=== PATIENT | male | born 1930 | race Caucasian/White ===

== ENCOUNTER 2020-05-14 11:21 | Inpatient (IN) | payer MEDICARE, OTHER, MEDICAID ==
[~2020-05-14] VITALS: Ht 162.6 cm; Wt 95.1 kg
[2020-05-14 11:48] LABS: BASO % 0.1 % (0.0-1.0); EOS # 0.1 10^3/uL (0.0-0.5); EOS % 1.7 % (0.0-3.0); HEMATOCRIT 42.1 % (42.0-52.0); HEMOGLOBIN 13.8 g/dl (13.5-17.5); LYMPH # 0.6 10^3/uL (1.5-5.0); LYMPH % 8.9 % (24.0-44.0); MEAN CORPUSCULAR HEMOGLOBIN 30.6 pg (27.0-33.0); MEAN CORPUSCULAR HGB CONC 32.8 g/dl (32.0-36.5); MEAN CORPUSCULAR VOLUME 93.3 fl (80.0-96.0); MONO # 0.4 10^3/uL (0.0-0.8); MONO % 6.2 % (0.0-5.0); NEUTROPHILS # 5.9 10^3/uL (1.5-8.5); NEUTROPHILS % 82.7 % (36.0-66.0); PLATELET COUNT, AUTOMATED 127 10^3/uL (150-450); RED BLOOD COUNT 4.51 10^6/uL (4.30-6.10); WHITE BLOOD COUNT 7.1 10^3/uL (4.0-10.0)
[2020-05-14] MEDS ORDERED: NITR4TASL SL (12:01)
[2020-05-14] MEDS ORDERED: VENTAER INH (12:01)
[2020-05-14] MEDS ORDERED: TUMS500C PO (12:01)
[2020-05-14] MEDS ORDERED: APAP325T4 PO (12:01)
[2020-05-14] MEDS ORDERED: KLOR10TA76 PO (12:01)
[2020-05-14] MEDS ORDERED: LOPE2TAB12 PO (12:01)
[2020-05-14] MEDS ORDERED: FINA5TAB2 PO (12:01)
[2020-05-14] MEDS ORDERED: ANOR1AER INH (12:01)
--- NOTE | 2020-05-14 12:06 | REP ---
INDICATION: Altered Mental Status. COMPARISON: None. TECHNIQUE: Noncontrast head CT protocol with coronal reconstructions. FINDINGS: The lateral ventricles are symmetric dilated but without midline shift. There is no intra ventricular hemorrhage. Third ventricle of mildly prominent 4th ventricle minimally prominent. All of this is proportionate to the moderately severe diffuse atrophy, age-appropriate. Basal ganglia are symmetric bilaterally. 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 I do not see vascular territory infarct, intracranial hemorrhage, mass or mass effect. No extra-axial fluid collections. Brainstem was unremarkable cerebellum shows mild atrophy. Basal cisterns are intact. There is no posterior fossa hemorrhage or mass. At the skull base there are no mastoid, sphenoid or frontal sinus abnormalities. There is mucosal thickening in the floor of the left much greater than right maxillary antra. Some anterior ethmoid sinuses with mucosal thickening. No fracture of the skull base or calvarium noted. IMPRESSION: Moderately severe diffuse cerebral atrophy with ventriculomegaly in proportion. Chronic small vessel white matter ischemic changes. There is no intra- or extra-axial hemorrhage, acute infarct, mass or mass effect. Skull base and calvarium without fracture or focal lesion. Bilateral maxillary sinus mucosal disease left greater than right with minimal ethmoid sinus mucosal thickening. <Electronically signed by Cristo Barcenas > 05/14/20 [id number]
[2020-05-14] MEDS ORDERED: COLA100C5 PO ×2 (12:13)
[2020-05-14] MEDS ORDERED: MYRB50TA PO (12:13)
[2020-05-14] MEDS ORDERED: FLON1SPR NARES (12:13)
[2020-05-14] MEDS ORDERED: PANT-23 PO (12:13)
[2020-05-14] MEDS ORDERED: LOSA25TA14 PO (12:13)
[2020-05-14] MEDS ORDERED: DOXA1TAB67 PO (12:13)
[2020-05-14] MEDS ORDERED: HM A5TAB4 PO (12:13)
[2020-05-14] MEDS ORDERED: MOBI4TAB PO (12:13)
[2020-05-14] MEDS ORDERED: ACET1TAB55 PO (12:13)
[2020-05-14] MEDS ORDERED: MEMA10TA19 PO (12:13)
[2020-05-14] MEDS ORDERED: FURO20TA2 PO (12:13)
[2020-05-14] MEDS ORDERED: HYDROIN11 TOP (12:13)
[2020-05-14] MEDS ORDERED: REFR0.5D8 OU (12:13)
[2020-05-14] MEDS ORDERED: LORA-243 PO (12:13)
[2020-05-14] MEDS ORDERED: MIRA3350 PO (12:13)
[2020-05-14] MEDS ORDERED: MILKSUS3 PO (12:15)
[2020-05-14 12:18] LABS: ALBUMIN 3.2 GM/DL (3.2-5.2); ALT/SGPT 15 U/L (12-78); BILIRUBIN,DIRECT 0.2 MG/DL (0.0-0.2); BILIRUBIN,TOTAL 0.6 MG/DL (0.2-1.0); BLOOD UREA NITROGEN 18 MG/DL (7-18); CALCIUM LEVEL 8.6 MG/DL (8.8-10.2); CARBON DIOXIDE LEVEL 30 MEQ/L (21-32); CHLORIDE LEVEL 105 MEQ/L (98-107); CK-MB VALUE MASS 3.9 NG/ML (<3.6); CPK CREATINE PHOSPHOKINASE 172 U/L (39-308); CREATININE FOR GFR 0.97 MG/DL (0.70-1.30); GLOMERULAR FILTRATION RATE > 60.0 (>35); GLUCOSE, FASTING 85 MG/DL (70-100); MB/CK RELATIVE INDEX 2.27 (< OR =4); POTASSIUM SERUM 4.1 MEQ/L (3.5-5.1); SODIUM LEVEL 140 MEQ/L (136-145); TOTAL PROTEIN 6.1 GM/DL (6.4-8.2); TROPONIN I < 0.02 NG/ML (< 0.10)
--- NOTE | 2020-05-14 12:37 | REP ---
INDICATION: Altered Mental Status. COMPARISON: None TECHNIQUE: AP portable FINDINGS: Some elevation of the right diaphragm is noted. Heart is left ventricular configuration. There is some venous hypertension with vascular redistribution. Some underlying fibrosis makes early interstitial edema difficult to exclude. Retrocardiac density may reflect some atelectasis, fibrosis or early infiltrate. No gross effusion. Tortuous calcified aorta without gross aneurysm. Airway intact. Degenerative changes in the spine and shoulders. IMPRESSION: 1. Left ventricular configuration of the heart with some vascular redistribution. Underlying fibrosis makes early interstitial edema difficult to exclude. 2. Some retrocardiac density at the left base may reflect subsegmental atelectasis, fibrosis or infiltrate. No gross effusion but AP lordotic projection may certainly obscure small posterior effusions. <Electronically signed by Cristo Barcenas > 05/14/20 [id number]
[2020-05-14] MEDS ORDERED: PIPERACILLIN/TAZOBACTAM SOD 3.375 GM in D5W MINI-BAG PLUS 50 ML IV ONE (13:15)
[2020-05-14] MEDS ORDERED: valACYclovir HCL 500 MG TAB PO ONE (13:45)
[2020-05-14] MEDS ORDERED: NITROGLYCERIN 0.4 MG SUBL TABLET SL PRN (16:30)
[2020-05-14] MEDS ORDERED: MIRALAX *UNIT DOSE* 17GM PACKET PO PRN (16:30)
[2020-05-14] MEDS ORDERED: MOM 30ML SUSPENSION UDC PO PRN (16:30)
[2020-05-14 17:30] VITALS: BP 138/72
--- NOTE | 2020-05-14 17:41 | SMCUROLCON ---
Urology Consultation General Date of Consultation 05/14/20 Reason For Consultation This patient is seen for Cellulitis Of Groin,Syncope,Urethral Irritation. History of Present Illness The patient is a 89-year-old male with no past medical history for urologic or voiding problems. He presented to the emergency room after losing consciousness at his [facility] emergency room he was noted to have a swollen inflamed penis and a urology consult was called. The patient is not a good historian but denies any urinary problems. Past Medical History Medical History Osteoarthritis Mentally challenged Anxiety Depression Urinary incontinence GERD IBS Respiratory disorder Hypertension Atrial fibrillation Dementia Alzheimer's Surgical Hstory Unknown Social History Social History Patient in a penitentiary * Smoker: non-smoker Alcohol: Denies Drugs: denies Medications Current Medications Current Medications Medications (Trade) Dose Ordered Sig/Jena Route PRN Reason Start Time Stop Time Status Last Admin Dose Admin Artificial Tears (Akwa Tears) 2 drop BID OU 05/14/20 21:00 Clotrimazole (Lotrimin) 1 dose BID TOP 05/14/20 21:00 Docusate Sodium (Colace) 100 mg DAILY PO 05/15/20 09:00 Doxazosin Mesylate (Cardura) 4 mg DAILY PO 05/15/20 09:00 Enoxaparin Sodium (Lovenox) 40 mg DAILY SC 05/15/20 09:00 Finasteride (Proscar) 5 mg DAILY PO 05/15/20 09:00 Fluticasone Propionate (Flonase 0.05% Nasal [place]) 1 SPRAY IN EACH NOSTRIL BID NARES 05/14/20 21:00 Formoterol Fumarate (Perforomist) 20 mcg RBID INH 05/14/20 20:00 Home Med (Med Rec Complete!) ASDIRECTED XX 05/14/20 12:15 05/14/20 12:17 DC Lactobacillus Acidophilus (Bacid) 2 ea BID PO 05/14/20 21:00 Loratadine (Claritin) 10 mg QHS PO 05/14/20 21:00 Losartan Potassium (Cozaar) 25 mg QHS PO 05/14/20 21:00 Magnesium Hydroxide (Milk Of Magnesia) 30 ml DAILY PRN PO CONSTIPATION 05/14/20 16:30 Memantine (Namenda) 10 mg BID PO 05/14/20 21:00 Nitroglycerin (Nitrostat (1/ 150)) 0.4 mg Q5MP PRN SL CHEST PAIN 05/14/20 16:30 Pantoprazole Sodium (Protonix) 40 mg DAILY PO 05/15/20 09:00 Piperacillin Sod/ Tazobactam Sod 3.375 gm/Dextrose 50 ml @ 50 mls/hr Q6H IV 05/14/20 20:00 Polyethylene Glycol (Miralax) 1 pkt DAILY PRN PO CONSTIPATION 05/14/20 16:30 Tiotropium [place] (Spiriva Handihaler) 1 inhalation DAILY@08 INH 05/15/20 08:00 Valacyclovir HCl (Valtrex) 1,000 mg BID PO 05/14/20 21:00 Allergies Allergies: Coded Allergies: No Known Allergies (Unverified , 05/14/20) Review of Systems General: Reports: Normal Appetite; Denies: Fatigue, Malaise Constitutional: Denies: Fever, Chills, Sweats, Weakness, Malaise Eyes: Denies: Pain, Vision change ENT: Denies: Head Aches, Sore Throat, Epistaxis Skin: Denies: Rash, Lesions, Breakdown, Nail Changes Pulmonary: Denies: Dyspnea, Cough Cardiovascular: Denies Chest Pain, Denies Palpitations Gastrointestinal: Reports: Other Symptoms (IBS); Denies: Nausea, Vomiting, Abdominal Pain Genitourinary: Reports: Incontinence Psych: Reports: Other Psych (dementia, Alzheimer's) Physical Examination General Exam: Alert, No Acute Distress EYE EXAM: PERRLA, Conjunctiva & lids normal, EOMI; No: Sclera icteric ENT EXAM: Atraumatic, Mucous membr. moist/pink, Pharynx Normal Neck Exam: Supple; No: JVD, thyromegaly Chest Exam: Clear to auscultation, Normal air movement Heart Exam: Rate Normal, Regular Rhythm, Normal S1, Normal S2; No: Murmurs, Rubs Abdomen Exam: Normal Bowel Sounds, Soft; No: Tenderness, Hepatospenomegaly Male Exam Penis is uncircumcised. There is a large consolidated vesicle at the base with other scattered satellite vessels consistent with herpes simplex. Scrotum and inguinal areas are inflamed which is consistent with fungal infections. Scrotum is also inflamed. Testicles are normal. Vital Signs/I&O Vital Signs Date Time Temp Pulse Resp B/P (MAP) Pulse Ox O2 Delivery O2 Flow Rate FiO2 05/14/20 17:00 76 18 160/70 (100) 96 Room Air 05/14/20 13:15 97.5 Laboratory Data 24H Labs Laboratory Tests 2 05/14/20 11:28: Immature Granulocyte % (Auto) 0.4, Neutrophils (%) (Auto) 82.7H, Lymphocytes (%) (Auto) 8.9L, Monocytes (%) (Auto) 6.2H, Eosinophils (%) (Auto) 1.7, Basophils (%) (Auto) 0.1, Neutrophils # (Auto) 5.9, Lymphocytes # (Auto) 0.6L, Monocytes # (Auto) 0.4, Eosinophils # (Auto) 0.1, Basophils # (Auto) 0.0, Nucleated Red Blood Cells % (auto) 0.0, Anion Gap 5L, Glomerular Filtration Rate > 60.0, Lactic Acid Level 1.1, Calcium Level 8.6L, Total Bilirubin 0.6, Direct Bilirubin 0.2, Aspartate Amino Transf (AST/SGOT) 20, Alanine Aminotransferase (ALT/SGPT) 15, Alkaline Phosphatase 62, Total Creatine Kinase 172, Creatine Kinase MB 3.9H, Creatine Kinase MB Relative Index 2.27, Troponin I < 0.02, Total Protein 6.1L, Albumin 3.2, Albumin/Globulin Ratio 1.1, Thyroid Stimulating Hormone (TSH) 1.310 05/14/20 11:32: POC Glucose (Misc Panel) 87, POC Sodium (Misc Panel) 139, POC Potassium (Misc Panel) 4.1, POC Chloride (Misc Panel) 101, POC Total CO2 (Misc Panel) 29.0H, POC Blood Urea Nitrogen (Misc Panel 19, POC Ionized Calcium (Misc Panel) 4.6, POC Creatinine (Misc Panel) 1.0, POC Hematocrit (Misc Panel) 41.0 05/14/20 11:35: POC Troponin I (Misc) 0.00 CBC/BMP Laboratory Tests 05/14/20 11:28 Microbiology Microbiology 05/14/20 Herpes Simplex Virus I (PCR), Received Pending 05/14/20 Herpes Simplex Virus II (PCR), Received Pending 05/14/20 Blood Culture, Received Pending Assessment Fungal rash of groin Herpes simplex of penile shaft Plan Recommend valacyclovir and some antibiotics. Patient also would benefit from an antifungal to the groin areas. I would recommend wrapping the penis so the patient does not spread the virus. Elevate penis for better drainage Time Spent on Consult: Time Spent / Consult (Minutes): 60 CINDY GARRETT MD May 14, 2020 17:28
--- NOTE | 2020-05-14 18:43 | HPEPDOC ---
General Date of Admission May 14, 2020 Date of Service: May 14, 2020 Chief Complaint The patient is a 89-year-old male admitted with a reason for visit of Unresponsive. Source: Patient, Family Exam Limitations: Dementia, Hard of hearing History of Present Illness Mr. Bennett is an 89 year old male with Alzheimer's dementia and COPD here for syncope and found to have groin and penis inflammation. Patient is a poor historian and most of the history was obtained from ED provider and patient's saleem care proxy. While at [facility], he was eating breakfast and he had passed out briefly. When EMS arrived, he was found to have an SBP of 70. He was given fluid which his blood pressure quickly responded. He was then taken to the ED. While in the ED, physical exam demonstrated an enlarged, edematous penis with bullae. ED discussed case with urology who recommended antibiotic and antiviral. He was given Zosyn and Valacyclovir. While in the ED, he did not appear to be in distress. He did not answer my question appropriately and mumbled. He did admit to dysuria and pain in the groin area. I spoke with the health care proxy ([phone]). Patient at times can be confused, but once he warms up, he can continue a conversation. Health care proxy also confirms full code status. Home Medications Scheduled Acetaminophen (Acetaminophen) 325 Mg Tablet, 650 MG PO TID, (Reported) Carboxymethylcellulose Sodium (Refresh Tears) 15 Ml Drops, 1 DROP OU BID, (Reported) Docusate Sodium (Colace) 100 Mg Capsule, 100 MG PO DAILY, (Reported) Doxazosin Mesylate (Doxazosin) 4 Mg Tablet, 4 MG PO DAILY, (Reported) Finasteride (Finasteride) 5 Mg Tablet, 5 MG PO DAILY, (Reported) Fluticasone Propionate (Flonase Allergy Relief) 9.9 Ml [place].susp, 1 SPRAY NARES BID, (Reported) Furosemide (Furosemide) 20 Mg Tablet, 10 MG PO DAILY, (Reported) Lactobacillus Acidophilus (Acidophilus) 1 Each Tablet, 2 TAB PO BID, (Reported) Loratadine (Loratadine) 10 Mg Tablet, 10 MG PO QHS, (Reported) Losartan Potassium (Losartan Potassium) 25 Mg Tablet, 25 MG PO QHS, (Reported) Meloxicam (Mobic) 7.5 Mg Tablet, 7.5 MG PO DAILY, (Reported) Memantine HCl (Memantine HCl) 10 Mg Tablet, 10 MG PO BID, (Reported) Mirabegron (Myrbetriq) 50 Mg Tab.er.24h, 50 MG PO DAILY, (Reported) Pantoprazole Sodium (Pantoprazole Sodium) 40 Mg Tablet.dr, 40 MG PO DAILY, (Reported) Potassium Chloride (Klor-Con M10) 10 Meq Tab.er.prt, 10 MEQ PO DAILY, (Reported) Umeclidinium Brm/Vilanterol Tr (Anoro Ellipta 62.5-25 Mcg INH) 1 Each Blst.w.dev, 1 PUFF INH DAILY, (Reported) Scheduled PRN Acetaminophen (Acetaminophen) 325 Mg Tablet, 325 MG PO Q4H PRN for PAIN / FEVER, (Reported) Albuterol Sulfate (Ventolin Hfa) 18 Gm Hfa.aer.ad, 2 PUFFS INH Q4H PRN for SHORTNESS OF BREATH, (Reported) Calcium Carbonate (Tums) 200 Mg Tab.chew, 500 MG PO Q6H PRN for HEARTBURN, (R eported) Docusate Sodium (Colace) 100 Mg Capsule, 100 MG PO BID PRN for CONSTIPATION, (Reported) Loperamide HCl (Imodium A-D) 2 Mg Tablet, 2 MG PO QID PRN for DIARRHEA, (Reported) Magnesium Hydroxide (Milk of Magnesia) 400 Mg/5 Ml Oral.susp, 30 ML PO DAILY PRN for CONSTIPATION, (Reported) Nitroglycerin (Nitrostat) 0.4 Mg Tab.subl, 0.4 MG SL NITRO PRN for CHEST PAIN, (Reported) Ointment Base No.104 (Hydrophilic Ointment Base) 500 Gm Oint...g., 1 DOSE TOP BID PRN for RASH, (Reported) APPLY TO CHEST AND ABDOMEN Polyethylene Glycol 3350 (Miralax) 119 Gm Powder, 17 GM PO DAILY PRN for CONSTIPATION, (Reported) Allergies Coded Allergies: No Known Allergies (Unverified , 05/14/20) Past Medical History Medical History 1. Alzheimer's dementia 2. Mixed irritable bowel syndrome 3. Hypertension 4. BPH 5. Anxiety/depression 6. SHAUNA 7. COPD 8. GERD Surgical History Unknown. Patient is a poor historian. Did not see surgical history in paperwork Family History Unknown as patient is a poor historian Social History * Smoker: other (unknown as patient is a poor historian) Alcohol: other (unknown as patient is a poor historian) Drugs: other (unknown as patient is a poor historian) A-FIB/CHADSVASC A-FIB History Current/History of A-Fib/PAF?: No Review of Systems Constitutional: Denies: Chills, Fever Eyes: Denies: Vision change ENT: Denies: Sore Throat Skin: Reports: Rash Pulmonary: Reports: Dyspnea Cardiovascular: Reports: Chest Pain (he says he has it on and off, described as a sharp pain) Gastrointestinal: Denies: Abdominal Pain Genitourinary: Reports: Dysuria Musculoskeletal: Reports: Back Pain Neurological: Reports: Numbness (and feet bilaterally) Physical Examination General Exam: Negative: Cooperative, No Acute Distress Eye Exam: Positive: EOMI; Negative: Sclera icteric ENT Exam: Positive: Atraumatic Neck Exam: Negative: thyromegaly Chest Exam: Positive: Clear to auscultation, Diminished Heart Exam: Positive: Rate Normal, Regular Rhythm Abdomen Exam: Positive: Normal bowel sounds, Soft; Negative: Tenderness Extremity Exam: Negative: Cyanosis, Edema Neuro Exam: Positive: Other (had difficulty following commands for neurologic exam) Psych Exam: Positive: Mood NL Vital Signs Vital Signs Date Time Temp Pulse Resp B/P (MAP) Pulse Ox O2 Delivery O2 Flow Rate FiO2 05/14/20 16:45 75 156/76 (102) 94 Room Air 05/14/20 15:46 20 05/14/20 13:15 97.5 Laboratory Data Labs 24H Laboratory Tests 2 05/14/20 11:28: Immature Granulocyte % (Auto) 0.4, Neutrophils (%) (Auto) 82.7H, Lymphocytes (%) (Auto) 8.9L, Monocytes (%) (Auto) 6.2H, Eosinophils (%) (Auto) 1.7, Basophils (%) (Auto) 0.1, Neutrophils # (Auto) 5.9, Lymphocytes # (Auto) 0.6L, Monocytes # (Auto) 0.4, Eosinophils # (Auto) 0.1, Basophils # (Auto) 0.0, Nucleated Red Blood Cells % (auto) 0.0, Anion Gap 5L, Glomerular Filtration Rate > 60.0, Lactic Acid Level 1.1, Calcium Level 8.6L, Total Bilirubin 0.6, Direct Bilirubin 0.2, Aspartate Amino Transf (AST/SGOT) 20, Alanine Aminotransferase (ALT/SGPT) 15, Alkaline Phosphatase 62, Total Creatine Kinase 172, Creatine Kinase MB 3.9H, Creatine Kinase MB Relative Index 2.27, Troponin I < 0.02, Total Protein 6.1L, Albumin 3.2, Albumin/Globulin Ratio 1.1, Thyroid Stimulating Hormone (TSH) 1.310 05/14/20 11:32: POC Glucose (Misc Panel) 87, POC Sodium (Misc Panel) 139, POC Potassium (Misc Panel) 4.1, POC Chloride (Misc Panel) 101, POC Total CO2 (Misc Panel) 29.0H, POC Blood Urea Nitrogen (Misc Panel 19, POC Ionized Calcium (Misc Panel) 4.6, POC Creatinine (Misc Panel) 1.0, POC Hematocrit (Misc Panel) 41.0 05/14/20 11:35: POC Troponin I (Misc) 0.00 CBC/BMP Laboratory Tests 05/14/20 11:28 Microbiology Microbiology 05/14/20 Herpes Simplex Virus I (PCR), Received Pending 05/14/20 Herpes Simplex Virus II (PCR), Received Pending 05/14/20 Blood Culture, Received Pending Assessment/Plan Mr. Bennett is an 89 year old male with Alzheimer's dementia and COPD here for syncope and found to have groin and penis inflammation. Syncope work up will include echocardiogram and tele monitoring. Urology consulted for groin/penis inflammation. Urology is suspecting HSV infection. Recommends elevation of penis to help with the swelling. Recommends wrapping the penis to prevent transmission of HSV from penis to hand to eye. Recommends antiviral and antifungal. Plan / VTE VTE Prophylaxis Ordered?: Yes Plan Plan 1. Syncope -Passed out at [facility] -May have been secondary to hypotension -Responded to fluid -Echocardiogram and tele monitor 2. HSV infection of penis -Urology following, recommendations appreciated -HSV PCR pending -Valacyclovir 3. Tinea cruris -Groin area -Clotrimazole topical -May be cellulitis, added on Zosyn 4. BPH -continue Doxazosin and finasteride 5. COPD -Substituted LAMA/LABA combo with tiotropium and formoterol 6. Hypertension -Losartan 7. Alzheimer's dementia -Memantine 8. GERD -Pantoprazole 9. DVT ppx -SCD and TEDs BREONNA STEIN DO May 14, 2020 17:10
[2020-05-14] MEDS: FORMOTEROL FUMARATE 20 MCG/2 ML INHALATION SOLUTION (PERFOROMIST) INH SCH (20:09)
[2020-05-14 20:17] LABS: CHLAMYDIA DNA AMPLIFICATION NEGATIVE (NEGATIVE); GC DNA AMPLIFICATION NEGATIVE (NEGATIVE)
[2020-05-14] MEDS: PIPERACILLIN/TAZOBACTAM SOD 3.375 GM in D5W MINI-BAG PLUS 50 ML IV SCH (20:17)
[2020-05-14] MEDS: MEMANTINE 5MG TABLET (NAMENDA) PO SCH (20:18)
[2020-05-14] MEDS: LACTOBACILLUS ACIDOPHILUS CAP (BACID) PO SCH (20:18)
[2020-05-14] MEDS: LORATADINE 10 MG TAB PO SCH (20:19)
[2020-05-14] MEDS: valACYclovir HCL 500 MG TAB PO SCH (20:19)
[2020-05-14] MEDS: LOSARTAN 25 MG TAB PO SCH (20:22)
[2020-05-14] MEDS: POLYVINYL ALCOHOL OPHTH SOLN 15 ML(LIQUITEARS) OU SCH (20:22)
[2020-05-14] MEDS: FLUTICASONE PROP 0.05% NASAL SPRAY 16 GM (FLONASE) NARES SCH (20:22)
[2020-05-14] MEDS: CLOTRIMAZOLE 1% TOPICAL CREAM 30GM TOP SCH (20:51)
[2020-05-14 22:00] VITALS: BP 144/86
[2020-05-15] MEDS: PIPERACILLIN/TAZOBACTAM SOD 3.375 GM in D5W MINI-BAG PLUS 50 ML IV SCH ×4 (02:16→21:28)
[2020-05-15 04:00] VITALS: BP 108/85
[2020-05-15 06:46] LABS: HEMATOCRIT 42.1 % (42.0-52.0); HEMOGLOBIN 13.9 g/dl (13.5-17.5); MEAN CORPUSCULAR HEMOGLOBIN 30.3 pg (27.0-33.0); MEAN CORPUSCULAR VOLUME 91.7 fl (80.0-96.0); PLATELET COUNT, AUTOMATED 129 10^3/uL (150-450); RED BLOOD COUNT 4.59 10^6/uL (4.30-6.10)
[2020-05-15 07:06] LABS: BLOOD UREA NITROGEN 16 MG/DL (7-18); CALCIUM LEVEL 8.4 MG/DL (8.8-10.2); CARBON DIOXIDE LEVEL 27 MEQ/L (21-32); CHLORIDE LEVEL 108 MEQ/L (98-107); CREATININE FOR GFR 0.87 MG/DL (0.70-1.30); GLOMERULAR FILTRATION RATE > 60.0 (>35); GLUCOSE, FASTING 86 MG/DL (70-100); POTASSIUM SERUM 3.8 MEQ/L (3.5-5.1); SODIUM LEVEL 141 MEQ/L (136-145)
[2020-05-15] MEDS: FORMOTEROL FUMARATE 20 MCG/2 ML INHALATION SOLUTION (PERFOROMIST) INH SCH ×2 (07:09→20:08)
[2020-05-15] MEDS: TIOTROPIUM INHALER/CAPSULE (SPIRIVA) INH SCH (07:09)
[2020-05-15] MEDS: LACTOBACILLUS ACIDOPHILUS CAP (BACID) PO SCH ×2 (08:54→21:29)
[2020-05-15] MEDS: FINASTERIDE 5 MG TAB PO SCH (08:54)
[2020-05-15] MEDS: ENOXAPARIN 40MG/0.4ML SYRINGE (J1650 PER 10MG) SC SCH (08:54)
[2020-05-15] MEDS: CLOTRIMAZOLE 1% TOPICAL CREAM 30GM TOP SCH ×2 (08:54→21:29)
[2020-05-15] MEDS: MEMANTINE 5MG TABLET (NAMENDA) PO SCH ×2 (08:54→21:35)
[2020-05-15] MEDS: valACYclovir HCL 500 MG TAB PO SCH ×2 (08:55→21:35)
[2020-05-15] MEDS: PANTOPRAZOLE 40MG TAB (PROTONIX) PO SCH (08:55)
[2020-05-15] MEDS: DOCUSATE SODIUM 100 MG CAP PO SCH (08:55)
[2020-05-15] MEDS: DOXAZOSIN MESYLATE 4 MG TAB PO SCH (14:53)
[2020-05-15] MEDS: FLUTICASONE PROP 0.05% NASAL SPRAY 16 GM (FLONASE) NARES SCH ×2 (14:53→21:29)
[2020-05-15] MEDS: POLYVINYL ALCOHOL OPHTH SOLN 15 ML(LIQUITEARS) OU SCH ×2 (14:53→21:29)
--- NOTE | 2020-05-15 15:51 | IPNPDOC ---
Subjective Date Seen The patient was seen on 05/15/20. Subjective Chief Complaint/HPI Mr. Bennett is an 89 year old male with Alzheimer's dementia and COPD here for syncope and found to have groin and penis inflammation. Overnight, he was agitated and required a sitter. Otherwise, reports some pain in his groin area. Denies fevers, dyspnea, or chest pain. Objective Physical Examination General Exam: Negative: Cooperative Eye Exam: Positive: EOMI; Negative: Sclera icteric ENT Exam: Positive: Atraumatic Neck Exam: Negative: thyromegaly Chest Exam: Positive: Clear to auscultation, Diminished Heart Exam: Positive: Rate Normal, Regular Rhythm Abdomen Exam: Positive: Normal bowel sounds, Soft; Negative: Tenderness Extremity Exam: Negative: Cyanosis, Edema Neuro Exam: Positive: Other (had difficulty following commands for neurologic exam) Psych Exam: Positive: Mood NL Assessment /Plan Assessment Mr. Bennett is an 89 year old male with Alzheimer's dementia and COPD here for syncope and found to have groin and penis inflammation. Syncope work up will include echocardiogram and tele monitoring. Urology consulted for groin/penis inflammation. Urology is suspecting HSV infection. Recommends elevation of penis to help with the swelling. Recommends wrapping the penis to prevent transmission of HSV from penis to hand to eye. Recommends antiviral and antifungal. Pending HSV PCR results Plan/VTE VTE Prophylaxis Ordered?: Yes Plan 1. Syncope -Passed out at [facility] -May have been secondary to hypotension -Responded to fluid -Echocardiogram results pending -Tele monitor 2. HSV infection of penis -Urology following, recommendations appreciated -HSV PCR pending -Valacyclovir 3. Tinea cruris -Groin area -Clotrimazole topical -May be cellulitis, added on Zosyn 4. BPH -continue Doxazosin and finasteride 5. COPD -Substituted LAMA/LABA combo with tiotropium and formoterol 6. Hypertension -Losartan 7. Alzheimer's dementia -Memantine 8. GERD -Pantoprazole 9. DVT ppx -SCD and TEDs Dispo: Pending HSV PCR results VS, I&O, 24H, Fishbone Vital Signs/I&O Vital Signs Date Time Temp Pulse Resp B/P (MAP) Pulse Ox O2 Delivery O2 Flow Rate FiO2 05/15/20 14:53 120/90 05/15/20 14:00 98.7 77 19 96 05/14/20 17:30 Room Air I&O- Last 24 Hours up to 6 AM 05/15/20 06:00 Intake Total 900 ml Output Total 1125 ml Balance -225 ml Laboratory Data 24H LABS Laboratory Tests 2 05/14/20 17:38: Urine Color YELLOW, Urine Appearance CLEAR, Urine pH 6.0, Urine Specific [place] 1.013, Urine Protein NEGATIVE, Urine Glucose (UA) NEGATIVE, Urine Ketones NEGATIVE, Urine Blood NEGATIVE, Urine Nitrite NEGATIVE, Urine Bilirubin NEGATIVE, Urine Urobilinogen 0.2, Urine Leukocyte Esterase NEGATIVE, Urine WBC (Auto) 0, Urine RBC (Auto) 0, Urine Hyaline Casts (Auto) 0, Urine Bacteria (Auto) NEGATIVE, Urine Squamous Epithelial Cells 0, Urine Mucus (Auto) SMALL, Urine Sperm (Auto) , Chlamydia trachomatis DNA (ANTHONY) NEGATIVE, Neisseria gonorrhoeae DNA (ANTHONY) NEGATIVE, Trichomonas vaginalis (PCR) NOT DETECTED 05/14/20 19:24: Troponin I < 0.02 05/15/20 06:13: Nucleated Red Blood Cells % (auto) 0.0, Anion Gap 6L, Glomerular Filtration Rate > 60.0, Calcium Level 8.4L 05/15/20 13:55: Lab Scanned Report Miscellaneous Lab CBC/BMP Laboratory Tests 05/15/20 06:13 Microbiology Microbiology 05/14/20 Blood Culture, Received Pending 05/14/20 Herpes Simplex Virus I (PCR), Received Pending 05/14/20 Herpes Simplex Virus II (PCR), Received Pending 05/14/20 Blood Culture - Preliminary, Resulted No growth after 24 hours . All specim... BREONNA STEIN DO May 15, 2020 15:51
[2020-05-15] MEDS ORDERED: ACETAMINOPHEN TAB 650MG DOSE (2X325MG) PO PRN (20:30)
[2020-05-15] MEDS: LOSARTAN 25 MG TAB PO SCH (21:35)
[2020-05-15] MEDS: LORATADINE 10 MG TAB PO SCH (21:35)
[2020-05-15 22:00] VITALS: BP 180/89
[2020-05-15] MEDS ORDERED: HALOPERIDOL 5MG/ML VIAL (J1630 PER 1) IM STA (22:17)
[2020-05-15] MEDS ORDERED: hydrOXYzine 25 MG TAB PO ONE (22:30)
[2020-05-16] MEDS: PIPERACILLIN/TAZOBACTAM SOD 3.375 GM in D5W MINI-BAG PLUS 50 ML IV SCH ×4 (02:12→20:33)
[2020-05-16 06:00] VITALS: BP 140/71
[2020-05-16 06:26] LABS: HEMATOCRIT 42.5 % (42.0-52.0); HEMOGLOBIN 14.3 g/dl (13.5-17.5); MEAN CORPUSCULAR HEMOGLOBIN 30.8 pg (27.0-33.0); MEAN CORPUSCULAR HGB CONC 33.6 g/dl (32.0-36.5); MEAN CORPUSCULAR VOLUME 91.4 fl (80.0-96.0); PLATELET COUNT, AUTOMATED 130 10^3/uL (150-450); RED BLOOD COUNT 4.65 10^6/uL (4.30-6.10); WHITE BLOOD COUNT 5.5 10^3/uL (4.0-10.0)
[2020-05-16 06:50] LABS: BLOOD UREA NITROGEN 15 MG/DL (7-18); CARBON DIOXIDE LEVEL 28 MEQ/L (21-32); CHLORIDE LEVEL 107 MEQ/L (98-107); CREATININE FOR GFR 0.81 MG/DL (0.70-1.30); GLOMERULAR FILTRATION RATE > 60.0 (>35); GLUCOSE, FASTING 89 MG/DL (70-100); POTASSIUM SERUM 3.6 MEQ/L (3.5-5.1); SODIUM LEVEL 140 MEQ/L (136-145)
[2020-05-16 06:51] LABS: CALCIUM LEVEL 8.5 MG/DL (8.8-10.2)
[2020-05-16] MEDS: FORMOTEROL FUMARATE 20 MCG/2 ML INHALATION SOLUTION (PERFOROMIST) INH SCH ×2 (07:13→19:19)
[2020-05-16] MEDS: TIOTROPIUM INHALER/CAPSULE (SPIRIVA) INH SCH (07:14)
[2020-05-16] MEDS: ENOXAPARIN 40MG/0.4ML SYRINGE (J1650 PER 10MG) SC SCH (09:07)
[2020-05-16] MEDS: LACTOBACILLUS ACIDOPHILUS CAP (BACID) PO SCH ×2 (09:07→20:35)
[2020-05-16] MEDS: MEMANTINE 5MG TABLET (NAMENDA) PO SCH ×2 (09:07→20:35)
[2020-05-16] MEDS: DOCUSATE SODIUM 100 MG CAP PO SCH (09:07)
[2020-05-16] MEDS: valACYclovir HCL 500 MG TAB PO SCH ×2 (09:07→20:34)
[2020-05-16] MEDS: PANTOPRAZOLE 40MG TAB (PROTONIX) PO SCH (09:07)
[2020-05-16] MEDS: CLOTRIMAZOLE 1% TOPICAL CREAM 30GM TOP SCH ×2 (09:13→20:36)
[2020-05-16] MEDS: DOXAZOSIN MESYLATE 4 MG TAB PO SCH (09:13)
[2020-05-16] MEDS: POLYVINYL ALCOHOL OPHTH SOLN 15 ML(LIQUITEARS) OU SCH ×2 (09:13→20:36)
[2020-05-16] MEDS: FINASTERIDE 5 MG TAB PO SCH (09:13)
[2020-05-16] MEDS: FLUTICASONE PROP 0.05% NASAL SPRAY 16 GM (FLONASE) NARES SCH ×2 (09:13→20:35)
--- NOTE | 2020-05-16 10:34 | ECHO ---
DATE OF PROCEDURE: 05/14/2020 Age: 89 Gender: Male REFERRING PROVIDER: Tramaine Bucio DO PATIENT LOCATION: Room 4219. REASON FOR STUDY: Syncope. 2D MEASUREMENTS: IVS 1.2 cm LV 3.9 cm LVPW 1.3 cm LA 2.9 cm Aorta 3.8 cm DOPPLER MEASUREMENT Peak velocity across the aortic valve 1.8 m/s Peak velocity across the LVOT 0.88 m/s Mitral E 0.74 Mitral A 0.92 with a ratio of 0.8 Maximum tricuspid valve velocity 2.7 m/s 2D COMMENTS: 1. Normal left ventricular size with mildly increased left ventricular wall thickness. Left ventricular systolic function is normal, estimated at 60% to 65%. 2. Normal left atrium. Normal right atrium and right ventricle. 3. The atrial septum appeared to be normal without evidence of defect or shunt. 4. Mildly dilated aortic root at 3.8 cm. 5. No pericardial effusion seen. 6. Mildly calcified aortic valve with normal leaflet excursion. 7. Mildly calcified mitral annulus with normal anterior mitral valve leaflet motion. Normal tricuspid valve. The pulmonic valve and proximal pulmonary artery branches were not well visualized. 8. The inferior vena cava was not visualized. Doppler detects trace aortic regurgitation, mild tricuspid regurgitation. The calculated pulmonary artery systolic pressure varies between 30 to 40 mmHg. Abnormal relaxation pattern was noted across the mitral valve leaflets, as well as the mitral valve annulus consistent with features of grade 1 left ventricular diastolic dysfunction. IMPRESSION: 1. Normal global left ventricular systolic function with mild concentric left ventricular hypertrophy. There are some features of grade 1 left ventricular diastolic dysfunction manifested by abnormal relaxation. 2. Aortic valve sclerosis with trace aortic regurgitation and trivial aortic stenosis. 3. Isolated mitral annulus calcification. 4. Mild tricuspid regurgitation with mild pulmonary hypertension. 5. A mildly dilated aortic root was noted, 3.8 cm. MTDD
[2020-05-16] MEDS: NYSTATIN 100,000 UNITS/GM TOPICAL PWD 15 GM TOP SCH ×2 (14:57→20:35)
--- NOTE | 2020-05-16 16:23 | IPNPDOC ---
Subjective Date Seen The patient was seen on 05/16/20. Subjective Chief Complaint/HPI Mr. Bennett is an 89 year old male with Alzheimer's dementia and COPD here for syncope and found to have groin and penis inflammation. He is a poor historian, but denies any fevers or abdominal pain. He reports pain in the groin but does not know if it's better or worse than before. Objective Physical Examination General Exam: Negative: Cooperative Eye Exam: Positive: EOMI; Negative: Sclera icteric ENT Exam: Positive: Atraumatic Neck Exam: Negative: thyromegaly Chest Exam: Positive: Clear to auscultation, Diminished Heart Exam: Positive: Rate Normal, Regular Rhythm Abdomen Exam: Positive: Normal bowel sounds, Soft; Negative: Tenderness Extremity Exam: Negative: Cyanosis, Edema Neuro Exam: Positive: Other (had difficulty following commands for neurologic exam) Psych Exam: Positive: Mood NL Assessment /Plan Assessment Mr. Bennett is an 89 year old male with Alzheimer's dementia and COPD here for syncope and found to have groin and penis inflammation. Syncope work up will include echocardiogram and tele monitoring. Urology consulted for groin/penis inflammation. Urology is suspecting HSV infection. Recommends elevation of penis to help with the swelling. Recommends wrapping the penis to prevent transmission of HSV from penis to hand to eye. Recommends antiviral and antifungal. Pending HSV PCR results. Plan/VTE VTE Prophylaxis Ordered?: Yes Plan 1. Syncope -Passed out at [facility] -May have been secondary to hypotension -Responded to fluid -Echocardiogram demonstrates normal global left ventricular systolic function with grade 1 diastolic dysfunction -Tele monitor 2. HSV infection of penis -Urology following, recommendations appreciated -HSV PCR pending -Valacyclovir 3. Tinea cruris -Groin area -Clotrimazole topical -Added nystatin powder today -May be cellulitis, added on Zosyn 4. BPH -continue Doxazosin and finasteride 5. COPD -Substituted LAMA/LABA combo with tiotropium and formoterol 6. Hypertension -Losartan 7. Alzheimer's dementia -Memantine 8. Delirium/hospital psychosis/"sundowning" -Will start Seroquel tonight 9. GERD -Pantoprazole 10. DVT ppx -SCD and TEDs Dispo: Pending HSV PCR results VS, I&O, 24H, Fishbone Vital Signs/I&O Vital Signs Date Time Temp Pulse Resp B/P (MAP) Pulse Ox O2 Delivery O2 Flow Rate FiO2 05/16/20 14:00 98.0 73 20 93 Room Air 05/16/20 09:13 165/108 I&O- Last 24 Hours up to 6 AM 05/16/20 06:00 Intake Total 700 ml Output Total 0 ml Balance 700 ml Laboratory Data 24H LABS Laboratory Tests 2 05/16/20 06:04: Nucleated Red Blood Cells % (auto) 0.0, Anion Gap 5L, Glomerular Filtration Rate > 60.0, Calcium Level 8.5L CBC/BMP Laboratory Tests 05/16/20 06:04 Microbiology Microbiology 05/14/20 Blood Culture - Preliminary, Resulted No growth after 24 hours . All specim... 05/14/20 Herpes Simplex Virus I (PCR), Received Pending 05/14/20 Herpes Simplex Virus II (PCR), Received Pending 05/14/20 Blood Culture - Preliminary, Resulted No Growth after 48 hours. All Specime... BREONNA STEIN DO May 16, 2020 16:23
[2020-05-16] MEDS: LORATADINE 10 MG TAB PO SCH (20:34)
[2020-05-16] MEDS: LOSARTAN 25 MG TAB PO SCH (20:34)
[2020-05-16] MEDS ORDERED: QUEtiapine FUMARATE 25 MG TAB PO SCH (21:00)
[2020-05-16 22:00] VITALS: BP 150/82
[2020-05-16] MEDS ORDERED: HALOPERIDOL 5MG/ML VIAL (J1630 PER 1) IV PRN (23:45)
[2020-05-17] MEDS: PIPERACILLIN/TAZOBACTAM SOD 3.375 GM in D5W MINI-BAG PLUS 50 ML IV SCH ×4 (03:05→20:03)
[2020-05-17 06:00] VITALS: BP 140/84
[2020-05-17 07:08] LABS: HEMATOCRIT 45.8 % (42.0-52.0); HEMOGLOBIN 14.9 g/dl (13.5-17.5); MEAN CORPUSCULAR HGB CONC 32.5 g/dl (32.0-36.5); MEAN CORPUSCULAR VOLUME 92.3 fl (80.0-96.0); PLATELET COUNT, AUTOMATED 141 10^3/uL (150-450); RED BLOOD COUNT 4.96 10^6/uL (4.30-6.10); WHITE BLOOD COUNT 7.1 10^3/uL (4.0-10.0)
[2020-05-17] MEDS: FORMOTEROL FUMARATE 20 MCG/2 ML INHALATION SOLUTION (PERFOROMIST) INH SCH ×2 (07:15→19:24)
[2020-05-17] MEDS: TIOTROPIUM INHALER/CAPSULE (SPIRIVA) INH SCH (07:16)
[2020-05-17 07:22] LABS: BLOOD UREA NITROGEN 15 MG/DL (7-18); CALCIUM LEVEL 8.9 MG/DL (8.8-10.2); CARBON DIOXIDE LEVEL 28 MEQ/L (21-32); CHLORIDE LEVEL 105 MEQ/L (98-107); CREATININE FOR GFR 0.86 MG/DL (0.70-1.30); GLOMERULAR FILTRATION RATE > 60.0 (>35); GLUCOSE, FASTING 83 MG/DL (70-100); SODIUM LEVEL 139 MEQ/L (136-145)
[2020-05-17] MEDS: FINASTERIDE 5 MG TAB PO SCH (10:01)
[2020-05-17] MEDS: MEMANTINE 5MG TABLET (NAMENDA) PO SCH ×2 (10:01→20:04)
[2020-05-17] MEDS: DOCUSATE SODIUM 100 MG CAP PO SCH (10:02)
[2020-05-17] MEDS: valACYclovir HCL 500 MG TAB PO SCH ×2 (10:02→20:07)
[2020-05-17] MEDS: LACTOBACILLUS ACIDOPHILUS CAP (BACID) PO SCH ×2 (10:02→20:04)
[2020-05-17] MEDS: PANTOPRAZOLE 40MG TAB (PROTONIX) PO SCH (10:03)
[2020-05-17] MEDS: DOXAZOSIN MESYLATE 4 MG TAB PO SCH (10:05)
[2020-05-17] MEDS: ENOXAPARIN 40MG/0.4ML SYRINGE (J1650 PER 10MG) SC SCH (10:05)
[2020-05-17] MEDS: CLOTRIMAZOLE 1% TOPICAL CREAM 30GM TOP SCH ×2 (10:06→20:08)
[2020-05-17] MEDS: POLYVINYL ALCOHOL OPHTH SOLN 15 ML(LIQUITEARS) OU SCH ×2 (10:06→20:08)
[2020-05-17] MEDS: FLUTICASONE PROP 0.05% NASAL SPRAY 16 GM (FLONASE) NARES SCH ×2 (10:06→20:08)
[2020-05-17] MEDS: NYSTATIN 100,000 UNITS/GM TOPICAL PWD 15 GM TOP SCH ×2 (10:07→20:07)
--- NOTE | 2020-05-17 12:36 | IPNPDOC ---
Subjective Date Seen The patient was seen on 05/17/20. Subjective Chief Complaint/HPI Mr. Bennett is an 89 year old male with Alzheimer's dementia and COPD here for syncope and found to have groin and penis inflammation. He is a poor historian, but denies any fevers, chest pain, dyspnea, or abdominal pain. Objective Physical Examination General Exam: Negative: Cooperative Eye Exam: Positive: EOMI; Negative: Sclera icteric ENT Exam: Positive: Atraumatic Neck Exam: Negative: thyromegaly Chest Exam: Positive: Clear to auscultation, Diminished Heart Exam: Positive: Rate Normal, Regular Rhythm Abdomen Exam: Positive: Normal bowel sounds, Soft; Negative: Tenderness Extremity Exam: Negative: Cyanosis, Edema Skin Exam: Positive: Rash (groin area) Neuro Exam: Positive: Other (had difficulty following commands for neurologic exam) Psych Exam: Positive: Mood NL Assessment /Plan Assessment Mr. Bennett is an 89 year old male with Alzheimer's dementia and COPD here for syncope and found to have groin and penis inflammation. Syncope work up will include echocardiogram and tele monitoring. Urology consulted for groin/penis inflammation. Urology is suspecting HSV infection. Recommends elevation of penis to help with the swelling. Recommends wrapping the penis to prevent transmission of HSV from penis to hand to eye. Recommends antiviral and antifungal. Pending HSV PCR results. Plan/VTE VTE Prophylaxis Ordered?: Yes Plan 1. Syncope -Passed out at [facility] -May have been secondary to hypotension -Responded to fluid -Echocardiogram demonstrates normal global left ventricular systolic function with grade 1 diastolic dysfunction -Tele monitor 2. HSV infection of penis -Urology following, recommendations appreciated -HSV PCR pending -Valacyclovir 3. Tinea cruris -Groin area -Clotrimazole topical and nystatin powder -May be cellulitis, added on Zosyn 4. BPH -continue Doxazosin and finasteride 5. COPD -Substituted LAMA/LABA combo with tiotropium and formoterol 6. Hypertension -Losartan 7. Alzheimer's dementia -Memantine 8. Delirium/hospital psychosis/"sundowning" -Will start Seroquel tonight 9. GERD -Pantoprazole 10. DVT ppx -SCD and TEDs Dispo: Pending HSV PCR results. Will return back to [facility] VS, I&O, 24H, Fishbone Vital Signs/I&O Vital Signs Date Time Temp Pulse Resp B/P (MAP) Pulse Ox O2 Delivery O2 Flow Rate FiO2 05/17/20 10:05 123/82 05/17/20 06:00 98.6 88 19 94 Room Air I&O- Last 24 Hours up to 6 AM 05/17/20 06:00 Intake Total 1360 ml Balance 1360 ml Laboratory Data 24H LABS Laboratory Tests 2 05/17/20 06:30: Nucleated Red Blood Cells % (auto) 0.0, Anion Gap 6L, Glomerular Filtration Rate > 60.0, Calcium Level 8.9 CBC/BMP Laboratory Tests 05/17/20 06:30 Microbiology Microbiology 05/14/20 Blood Culture - Preliminary, Resulted No Growth after 48 hours. All Specime... 05/14/20 Herpes Simplex Virus I (PCR), Received Pending 05/14/20 Herpes Simplex Virus II (PCR), Received Pending 05/14/20 Blood Culture - Preliminary, Resulted No Growth after 72 hours. All specime... BREONNA STEIN DO May 17, 2020 12:36
[2020-05-17 14:00] VITALS: BP 127/82
[2020-05-17 20:00] VITALS: BP 124/80
[2020-05-17] MEDS: LOSARTAN 25 MG TAB PO SCH (20:07)
[2020-05-17] MEDS: LORATADINE 10 MG TAB PO SCH (20:07)
[2020-05-17] MEDS: QUEtiapine FUMARATE 50 MG TAB PO SCH (20:07)
[2020-05-17] MEDS ORDERED: HALOPERIDOL 5MG/ML VIAL (J1630 PER 1) IV PRN (21:00)
[2020-05-17 22:00] VITALS: BP 124/80
[2020-05-18] MEDS: PIPERACILLIN/TAZOBACTAM SOD 3.375 GM in D5W MINI-BAG PLUS 50 ML IV SCH ×4 (02:08→21:00)
[2020-05-18 06:00] VITALS: BP 134/88
[2020-05-18 06:59] LABS: HEMATOCRIT 45.4 % (42.0-52.0); MEAN CORPUSCULAR HEMOGLOBIN 30.4 pg (27.0-33.0); MEAN CORPUSCULAR VOLUME 92.1 fl (80.0-96.0); PLATELET COUNT, AUTOMATED 154 10^3/uL (150-450); RED BLOOD COUNT 4.93 10^6/uL (4.30-6.10); WHITE BLOOD COUNT 5.8 10^3/uL (4.0-10.0)
[2020-05-18 07:10] LABS: BLOOD UREA NITROGEN 13 MG/DL (7-18); CALCIUM LEVEL 8.5 MG/DL (8.8-10.2); CARBON DIOXIDE LEVEL 30 MEQ/L (21-32); CHLORIDE LEVEL 106 MEQ/L (98-107); CREATININE FOR GFR 0.81 MG/DL (0.70-1.30); GLOMERULAR FILTRATION RATE > 60.0 (>35); GLUCOSE, FASTING 81 MG/DL (70-100); POTASSIUM SERUM 3.9 MEQ/L (3.5-5.1); SODIUM LEVEL 141 MEQ/L (136-145)
[2020-05-18] MEDS: FORMOTEROL FUMARATE 20 MCG/2 ML INHALATION SOLUTION (PERFOROMIST) INH SCH ×2 (07:35→19:18)
[2020-05-18] MEDS: TIOTROPIUM INHALER/CAPSULE (SPIRIVA) INH SCH (07:36)
[2020-05-18] MEDS: ENOXAPARIN 40MG/0.4ML SYRINGE (J1650 PER 10MG) SC SCH (07:53)
[2020-05-18] MEDS: PANTOPRAZOLE 40MG TAB (PROTONIX) PO SCH (07:54)
[2020-05-18] MEDS: valACYclovir HCL 500 MG TAB PO SCH ×2 (07:54→20:58)
[2020-05-18] MEDS: MEMANTINE 5MG TABLET (NAMENDA) PO SCH ×2 (07:54→20:58)
[2020-05-18] MEDS: DOCUSATE SODIUM 100 MG CAP PO SCH (07:54)
[2020-05-18] MEDS: NYSTATIN 100,000 UNITS/GM TOPICAL PWD 15 GM TOP SCH ×2 (07:54→20:59)
[2020-05-18] MEDS: LACTOBACILLUS ACIDOPHILUS CAP (BACID) PO SCH ×2 (07:54→20:58)
[2020-05-18] MEDS: FLUTICASONE PROP 0.05% NASAL SPRAY 16 GM (FLONASE) NARES SCH ×2 (07:55→20:59)
[2020-05-18] MEDS: POLYVINYL ALCOHOL OPHTH SOLN 15 ML(LIQUITEARS) OU SCH ×2 (07:55→20:59)
[2020-05-18] MEDS: FINASTERIDE 5 MG TAB PO SCH (07:55)
[2020-05-18] MEDS: DOXAZOSIN MESYLATE 4 MG TAB PO SCH (07:55)
--- NOTE | 2020-05-18 09:26 | IPNPDOC ---
Subjective Review oF Systems Chief Complaint The patient is a 89-year-old male admitted with a reason for visit of Cellulitis Of Groin,Syncope,Urethral Irritation. General: Reports: ROS Unobtainable, Normal Appetite; Denies: Fatigue, Malaise Constitutional: Denies: Fever, Chills, Sweats, Weakness, Malaise Eyes: Denies: Pain, Vision change ENT: Denies: Head Aches, Sore Throat, Epistaxis Skin: Denies: Rash, Lesions, Breakdown, Nail Changes Pulmonary: Denies: Dyspnea, Cough Cardiovascular: Denies Chest Pain, Denies Palpitations Gastrointestinal: Denies: Nausea, Vomiting, Abdominal Pain Genitourinary: Denies: Dysuria, Frequency, Incontinence, Hematuria Hematologic: Denies: Bruising, Bleeding Excessively Endocrine: Denies: Polydipsia, Polyphagia, Polyuria Musculoskeletal: Denies: Neck Pain, Back Pain Objective Physical Examination General Exam: Cooperative, No Acute Distress; No: Alert, Mild Distress, Moderate Distress, Severe Distress, Other Eye Exam: PERRLA, Conjunctiva & lids normal, EOMI; No: Sclera icteric ENT EXAM: Atraumatic, Mucous membr. moist/pink, Pharynx Normal Heart Exam: Positive: Rate Normal, Regular Rhythm Other physical findings Penis is uncircumcised. The swelling seems to have resolved as have the blisters. Vital Signs/I&O Vital Signs Date Time Temp Pulse Resp B/P (MAP) Pulse Ox O2 Delivery O2 Flow Rate FiO2 05/18/20 07:55 134/88 05/18/20 06:00 98.3 81 19 95 Room Air I&O- Last 24 Hours up to 6 AM 05/18/20 06:00 Intake Total 520 ml Output Total 0 ml Balance 520 ml Laboratory Data Labs 24H Laboratory Tests 2 05/18/20 06:06: Nucleated Red Blood Cells % (auto) 0.0, Anion Gap 5L, Glomerular Filtration Rate > 60.0, Calcium Level 8.5L CBC/BMP Laboratory Tests 05/18/20 06:06 Microbiology Microbiology 05/14/20 Blood Culture - Preliminary, Resulted No Growth after 72 hours. All specime... 05/14/20 Herpes Simplex Virus I (PCR), Received Pending 05/14/20 Herpes Simplex Virus II (PCR), Received Pending 11/4/20 Blood Culture - Preliminary, Resulted No Growth after 72 hours. All specime... Assessment/Plan Date Seen The patient was seen on 05/18/20. Plan/VTE VTE Prophylaxis Ordered?: Yes Plan Patient continues to be incontinent because of his dementia. The swelling has improved and the blistering on the penis is resolving. The serology studies are still pending. At this point I would continue with supportive care but no further urologic intervention needed at this time. CINDY GARRETT MD May 18, 2020 09:26
[2020-05-18 14:00] VITALS: BP 128/79
[2020-05-18] MEDS: CLOTRIMAZOLE 1% TOPICAL CREAM 30GM TOP SCH ×2 (14:22→21:00)
--- NOTE | 2020-05-18 17:51 | ECGEPIP ---
[facility] Test Date: 2020-05-17 Pat Name: ROSALIE JAEMS Department: Room: [place] [address] Gender: Male Scientologist: : 1930 Requested By: BREONNA Montalvo Order Number: [id number] Reading MD: Awais Win Measurements Intervals [place] Rate: 74 P: 104 VT: 176 QRS: -46 QRSD: 105 T: 17 QT: 396 QTc: 441 Interpretive Statements SINUS RHYTHM LEFT AXIS DEVIATION Comparison tracing not on file Electronically Signed on 05-18-2020 17:51:35 EST by Awais Win
[2020-05-18 20:00] VITALS: BP 160/93
[2020-05-18] MEDS: LORATADINE 10 MG TAB PO SCH (20:58)
[2020-05-18] MEDS: QUEtiapine FUMARATE 50 MG TAB PO SCH (20:59)
[2020-05-18] MEDS: LOSARTAN 25 MG TAB PO SCH (20:59)
--- NOTE | 2020-05-18 21:16 | IPNPDOC ---
Subjective Date Seen The patient was seen on 05/18/20. Subjective Chief Complaint/HPI Mr. Bennett is an 89 year old male with Alzheimer's dementia and COPD here for syncope and found to have groin and penis inflammation. He was seen sleeping in the chair this morning. His nights and days are switched. Otherwise, he is a poor historian, but denies any fevers or abdominal pain Objective Physical Examination General Exam: Negative: Cooperative Eye Exam: Positive: EOMI; Negative: Sclera icteric ENT Exam: Positive: Atraumatic Neck Exam: Negative: thyromegaly Chest Exam: Positive: Clear to auscultation, Diminished Heart Exam: Positive: Rate Normal, Regular Rhythm Abdomen Exam: Positive: Normal bowel sounds, Soft; Negative: Tenderness Extremity Exam: Negative: Cyanosis, Edema Skin Exam: Positive: Rash (groin area) Neuro Exam: Positive: Other (had difficulty following commands for neurologic exam) Psych Exam: Positive: Mood NL Assessment /Plan Assessment Mr. Bennett is an 89 year old male with Alzheimer's dementia and COPD here for syncope and found to have groin and penis inflammation. Syncope work up will include echocardiogram and tele monitoring. Urology consulted for groin/penis inflammation. Urology is suspecting HSV infection. Recommends elevation of penis to help with the swelling. Recommends wrapping the penis to prevent transmission of HSV from penis to hand to eye. Recommends antiviral and antifungal. Pending HSV PCR results. Plan/VTE VTE Prophylaxis Ordered?: Yes Plan 1. Syncope -[facility]ed out at [facility] -May have been secondary to hypotension -Responded to fluid -Echocardiogram demonstrates normal global left ventricular systolic function wi th grade 1 diastolic dysfunction -Tele monitor 2. HSV infection of penis -Urology following, recommendations appreciated -HSV PCR pending -Valacyclovir 3. Tinea cruris -Groin area -Clotrimazole topical and nystatin powder -May be cellulitis, added on Zosyn 4. BPH -continue Doxazosin and finasteride 5. COPD -Substituted LAMA/LABA combo with tiotropium and formoterol 6. Hypertension -Losartan 7. Alzheimer's dementia -Memantine 8. Delirium/hospital psychosis/"sundowning" -Will start Seroquel tonight 9. GERD -Pantoprazole 10. DVT ppx -SCD and TEDs Dispo: Pending HSV PCR results, but groin appears better. May return back to [facility] when transportation can be arranged VS, I&O, 24H, Jessica Vital Signs/I&O Vital Signs Date Time Temp Pulse Resp B/P (MAP) Pulse Ox O2 Delivery O2 Flow Rate FiO2 05/18/20 20:59 151/86 05/18/20 14:00 98.1 76 17 96 Room Air I&O- Last 24 Hours up to 6 AM 05/18/20 06:00 Intake Total 520 ml Output Total 0 ml Balance 520 ml Laboratory Data 24H LABS Laboratory Tests 2 05/18/20 06:06: Nucleated Red Blood Cells % (auto) 0.0, Anion Gap 5L, Glomerular Filtration Rate > 60.0, Calcium Level 8.5L CBC/BMP Laboratory Tests 05/18/20 06:06 Microbiology Microbiology 05/14/20 Blood Culture - Preliminary, Resulted No Growth after 72 hours. All specime... 05/14/20 Herpes Simplex Virus I (PCR), Received Pending 05/14/20 Herpes Simplex Virus II (PCR), Received Pending 05/14/20 Blood Culture - Preliminary, Resulted No Growth after 72 hours. All specime... BREONNA STEIN DO May 18, 2020 21:16
[2020-05-19] MEDS: PIPERACILLIN/TAZOBACTAM SOD 3.375 GM in D5W MINI-BAG PLUS 50 ML IV SCH ×3 (02:16→14:55)
[2020-05-19 06:00] VITALS: BP 151/91
[2020-05-19 07:01] LABS: HEMATOCRIT 44.9 % (42.0-52.0); HEMOGLOBIN 15.1 g/dl (13.5-17.5); MEAN CORPUSCULAR HEMOGLOBIN 31.1 pg (27.0-33.0); MEAN CORPUSCULAR HGB CONC 33.6 g/dl (32.0-36.5); MEAN CORPUSCULAR VOLUME 92.6 fl (80.0-96.0); PLATELET COUNT, AUTOMATED 148 10^3/uL (150-450); RED BLOOD COUNT 4.85 10^6/uL (4.30-6.10); WHITE BLOOD COUNT 6.6 10^3/uL (4.0-10.0)
[2020-05-19 07:29] LABS: BLOOD UREA NITROGEN 21 MG/DL (7-18); CALCIUM LEVEL 8.4 MG/DL (8.8-10.2); CARBON DIOXIDE LEVEL 29 MEQ/L (21-32); CHLORIDE LEVEL 108 MEQ/L (98-107); CREATININE FOR GFR 0.95 MG/DL (0.70-1.30); GLOMERULAR FILTRATION RATE > 60.0 (>35); GLUCOSE, FASTING 82 MG/DL (70-100); POTASSIUM SERUM 3.8 MEQ/L (3.5-5.1); SODIUM LEVEL 140 MEQ/L (136-145)
[2020-05-19] MEDS: FORMOTEROL FUMARATE 20 MCG/2 ML INHALATION SOLUTION (PERFOROMIST) INH SCH ×2 (07:37→19:53)
[2020-05-19] MEDS: TIOTROPIUM INHALER/CAPSULE (SPIRIVA) INH SCH (07:37)
[2020-05-19] MEDS: FINASTERIDE 5 MG TAB PO SCH (09:12)
[2020-05-19] MEDS: DOCUSATE SODIUM 100 MG CAP PO SCH (09:12)
[2020-05-19] MEDS: PANTOPRAZOLE 40MG TAB (PROTONIX) PO SCH (09:12)
[2020-05-19] MEDS: MEMANTINE 5MG TABLET (NAMENDA) PO SCH ×2 (09:12→21:05)
[2020-05-19] MEDS: valACYclovir HCL 500 MG TAB PO SCH ×2 (09:12→21:05)
[2020-05-19] MEDS: ENOXAPARIN 40MG/0.4ML SYRINGE (J1650 PER 10MG) SC SCH (09:12)
[2020-05-19] MEDS: DOXAZOSIN MESYLATE 4 MG TAB PO SCH (09:14)
[2020-05-19] MEDS: POLYVINYL ALCOHOL OPHTH SOLN 15 ML(LIQUITEARS) OU SCH ×2 (09:15→21:06)
[2020-05-19] MEDS: LACTOBACILLUS ACIDOPHILUS CAP (BACID) PO SCH ×2 (09:15→21:04)
[2020-05-19] MEDS: FLUTICASONE PROP 0.05% NASAL SPRAY 16 GM (FLONASE) NARES SCH ×2 (09:15→21:05)
[2020-05-19] MEDS: CLOTRIMAZOLE 1% TOPICAL CREAM 30GM TOP SCH ×2 (09:16→21:06)
[2020-05-19] MEDS: NYSTATIN 100,000 UNITS/GM TOPICAL PWD 15 GM TOP SCH ×2 (09:16→21:05)
[2020-05-19 14:00] VITALS: BP 144/84
[2020-05-19] MEDS: CEFDINIR 300 MG CAP (OMNICEF) PO SCH (21:04)
[2020-05-19] MEDS: LORATADINE 10 MG TAB PO SCH (21:05)
[2020-05-19] MEDS: QUEtiapine FUMARATE 50 MG TAB PO SCH (21:05)
[2020-05-19] MEDS: LOSARTAN 25 MG TAB PO SCH (21:05)
[2020-05-19 22:00] VITALS: BP 166/90
--- NOTE | 2020-05-19 22:49 | IPNPDOC ---
Subjective Date Seen The patient was seen on 05/19/20. Subjective Chief Complaint/HPI Mr. Bennett is an 89 year old male with Alzheimer's dementia and COPD here for syncope and found to have groin and penis inflammation. Today, he was seen sitting up in the chair. Nursing reports that his days and nights are flipped. Otherwise denies fever, abdominal pain, or dysuria. Objective Physical Examination General Exam: Negative: Cooperative Eye Exam: Positive: EOMI; Negative: Sclera icteric ENT Exam: Positive: Atraumatic Neck Exam: Negative: thyromegaly Chest Exam: Positive: Clear to auscultation, Diminished Heart Exam: Positive: Rate Normal, Regular Rhythm Abdomen Exam: Positive: Normal bowel sounds, Soft; Negative: Tenderness Extremity Exam: Negative: Cyanosis, Edema Skin Exam: Positive: Rash (groin area) Neuro Exam: Positive: Other (had difficulty following commands for neurologic exam) Psych Exam: Positive: Mood NL Assessment /Plan Assessment Mr. Bennett is an 89 year old male with Alzheimer's dementia and COPD here for syncope and found to have groin and penis inflammation. Syncope work up will include echocardiogram and tele monitoring. Urology consulted for groin/penis inflammation. Urology is suspecting HSV infection. Recommends elevation of penis to help with the swelling. Recommends wrapping the penis to prevent transmission of HSV from penis to hand to eye. Recommends antiviral and antifungal. HSV PCR is negative. Will stop antiviral Plan/VTE VTE Prophylaxis Ordered?: Yes Plan 1. Syncope -Passed out at [facility] -May have been secondary to hypotension -Responded to fluid -Echocardiogram demonstrates normal global left ventricular systolic function with grade 1 diastolic dysfunction -Tele monitor 2. HSV infection of penis -Urology following, recommendations appreciated -HSV PCR returned negative -Discontinue antiviral 3. Tinea cruris -Groin area -Clotrimazole topical and nystatin powder -May be cellulitis -De-escalated Zosyn to cefdinir 4. BPH -continue Doxazosin and finasteride 5. COPD -Substituted LAMA/LABA combo with tiotropium and formoterol 6. Hypertension -Losartan 7. Alzheimer's dementia -Memantine 8. Delirium/hospital psychosis/"sundowning" -Will start Seroquel tonight 9. GERD -Pantoprazole 10. DVT ppx -SCD and TEDs Dispo: May return back to [facility] when transportation can be arranged VS, I&O, 24H, Jessica Vital Signs/I&O Vital Signs Date Time Temp Pulse Resp B/P (MAP) Pulse Ox O2 Delivery O2 Flow Rate FiO2 05/19/20 21:05 166/90 05/19/20 14:00 98.1 77 18 92 Room Air I&O- Last 24 Hours up to 6 AM 05/19/20 06:00 Intake Total 700 ml Output Total 0 ml Balance 700 ml Laboratory Data 24H LABS Laboratory Tests 2 05/19/20 06:43: Nucleated Red Blood Cells % (auto) 0.0, Anion Gap 3L, Glomerular Filtration Rate > 60.0, Calcium Level 8.4L 05/19/20 12:41: Coronavirus (COVID-19)(PCR) NEGATIVE CBC/BMP Laboratory Tests 05/19/20 06:43 Microbiology Microbiology 05/14/20 Blood Culture - Final, Complete NO GROWTH AFTER 5 DAYS 05/14/20 Herpes Simplex Virus I (PCR) - Final, Complete 05/14/20 Herpes Simplex Virus II (PCR) - Final, Complete 05/14/20 Blood Culture - Final, Complete NO GROWTH AFTER 5 DAYS BREONNA STEIN DO May 19, 2020 22:49
[2020-05-20 06:00] VITALS: BP 169/98
[2020-05-20] MEDS: FORMOTEROL FUMARATE 20 MCG/2 ML INHALATION SOLUTION (PERFOROMIST) INH SCH ×2 (07:24→20:00)
[2020-05-20] MEDS: TIOTROPIUM INHALER/CAPSULE (SPIRIVA) INH SCH (07:24)
[2020-05-20] MEDS: MEMANTINE 5MG TABLET (NAMENDA) PO SCH ×2 (08:08→22:10)
[2020-05-20] MEDS: DOCUSATE SODIUM 100 MG CAP PO SCH (08:08)
[2020-05-20] MEDS: LACTOBACILLUS ACIDOPHILUS CAP (BACID) PO SCH ×2 (08:08→22:07)
[2020-05-20] MEDS: FINASTERIDE 5 MG TAB PO SCH (08:08)
[2020-05-20] MEDS: CEFDINIR 300 MG CAP (OMNICEF) PO SCH ×2 (08:08→22:07)
[2020-05-20] MEDS: DOXAZOSIN MESYLATE 4 MG TAB PO SCH (08:09)
[2020-05-20] MEDS: ENOXAPARIN 40MG/0.4ML SYRINGE (J1650 PER 10MG) SC SCH (08:09)
[2020-05-20] MEDS: POLYVINYL ALCOHOL OPHTH SOLN 15 ML(LIQUITEARS) OU SCH ×2 (08:09→22:11)
[2020-05-20] MEDS: PANTOPRAZOLE 40MG TAB (PROTONIX) PO SCH (08:09)
[2020-05-20] MEDS: FLUTICASONE PROP 0.05% NASAL SPRAY 16 GM (FLONASE) NARES SCH ×2 (08:09→22:11)
[2020-05-20] MEDS: NYSTATIN 100,000 UNITS/GM TOPICAL PWD 15 GM TOP SCH ×2 (08:14→22:11)
[2020-05-20] MEDS: CLOTRIMAZOLE 1% TOPICAL CREAM 30GM TOP SCH ×2 (08:14→22:11)
--- NOTE | 2020-05-20 10:31 | REP ---
INDICATION: chest pain. COMPARISON: May 14, 2020. TECHNIQUE: Two views.. FINDINGS: The lungs are well inflated and free of infiltrate. The pleural angles are sharp. The heart size is borderline, unchanged. Pulmonary vasculature is not increased. No significant bony abnormality is seen. There is a large hiatal hernia in located behind the heart. There is mild dextroconvex curvature in the thoracic spine. IMPRESSION: Large hiatal hernia, borderline heart size. Dextroconvex thoracic curvature. Otherwise no acute disease.. <Electronically signed by Reynaldo Herrera > 05/20/20 [id number]
[2020-05-20] MEDS: METOPROLOL TART 25 MG TABLET PO SCH ×2 (12:35→22:08)
[2020-05-20 14:00] VITALS: BP 156/89
--- NOTE | 2020-05-20 16:39 | IPNPDOC ---
Subjective Date Seen The patient was seen on 05/20/20. Subjective Chief Complaint/HPI Mr. Bennett is an 89 year old male with Alzheimer's dementia and COPD here for syncope and found to have groin and penis inflammation. Planned to return to [facility] this morning, but start to complain of chest pain that started previous evening. Troponin negative. Ordered EKG which demonstrated atrial fibrillation. Called HCP, Leonard (nephew) and discussed this new finding. Explained the risk and benefits of anticoagulation which would be risk of bleeding vs risk of stroke. He was agreeable to starting anticoagulation. Otherwise, CXR demonstrated a hiatal hernia which may explain his intermittent chest discomfort and dyspnea. Denies fever or abdominal pain Objective Physical Examination General Exam: Negative: Cooperative Eye Exam: Positive: EOMI; Negative: Sclera icteric ENT Exam: Positive: Atraumatic Neck Exam: Negative: thyromegaly Chest Exam: Positive: Clear to auscultation, Diminished Heart Exam: Positive: Rate Normal, Regular Rhythm Abdomen Exam: Positive: Normal bowel sounds, Soft; Negative: Tenderness Extremity Exam: Negative: Cyanosis, Edema Skin Exam: Positive: Rash (groin area) Neuro Exam: Positive: Other (had difficulty following commands for neurologic exam) Psych Exam: Positive: Mood NL Assessment /Plan Assessment Mr. Bennett is an 89 year old male with Alzheimer's dementia and COPD here for syncope and found to have groin and penis inflammation. Syncope work up will include echocardiogram and tele monitoring. Urology consulted for groin/penis inflammation. Urology is suspecting HSV infection. Recommends elevation of penis to help with the swelling. Recommends wrapping the penis to prevent transmission of HSV from penis to hand to eye. Recommends antiviral and antifungal. HSV PCR returned negative. Stopped antiviral. Groin area much improved with antifungal and antibiotic. Today had chest pain. Work up was negative for ischemia, but positive for a.fib. Rate controlled. Spoke with HCP about risks and benefits of AC. Will start on metoprolol and Eliquis Plan/VTE VTE Prophylaxis Ordered?: Yes Plan 1. Syncope -Passed out at [facility] -May have been secondary to hypotension -Responded to fluid -Echocardiogram demonstrates normal global left ventricular systolic function with grade 1 diastolic dysfunction -Tele monitor 2. R/O HSV infection of penis -Urology following, recommendations appreciated -HSV PCR returned negative -Discontinue antiviral 3. Tinea cruris -Groin area -Clotrimazole topical and nystatin powder -May be cellulitis -De-escalated Zosyn to cefdinir 4. BPH -continue Doxazosin and finasteride 5. COPD -Substituted LAMA/LABA combo with tiotropium and formoterol 6. Hypertension -Losartan 7. Alzheimer's dementia -Memantine 8. Delirium/hospital psychosis/"sundowning" -Will start Seroquel tonight 9. GERD -Pantoprazole 10. Atrial fibrillation -Recently had echocardiogram -Started metoprolol and apixaban 11. DVT ppx -SCD and TEDs Dispo: May return back to [facility] when transportation can be arranged VS, I&O, 24H, Fishbone Vital Signs/I&O Vital Signs Date Time Temp Pulse Resp B/P (MAP) Pulse Ox O2 Delivery O2 Flow Rate FiO2 05/20/20 14:00 98.4 66 18 156/89 (111) 66 Room Air I&O- Last 24 Hours up to 6 AM 05/20/20 06:00 Intake Total 1170 ml Output Total 200 ml Balance 970 ml Laboratory Data 24H LABS Laboratory Tests 2 05/20/20 09:24: Troponin I < 0.02 Microbiology Microbiology 05/14/20 Blood Culture - Final, Complete NO GROWTH AFTER 5 DAYS 05/14/20 Herpes Simplex Virus I (PCR) - Final, Complete 05/14/20 Herpes Simplex Virus II (PCR) - Final, Complete 05/14/20 Blood Culture - Final, Complete NO GROWTH AFTER 5 DAYS BREONNA STEIN DO May 20, 2020 16:39
--- NOTE | 2020-05-20 18:05 | ECGEPIP ---
[facility] Test Date: 2020-05-20 Pat Name: ROSALIE JAMES Department: Room: E4591-16 Gender: Male Sonography Technologist: PEDRO : 1930 Requested By: BREONNA Montalvo Order Number: [id number] Reading MD: Jamar Stephen Measurements Intervals [place] Rate: 75 P: HI: 0 QRS: -45 QRSD: 112 T: 33 QT: 394 QTc: 441 Interpretive Statements Normal sinus rhythm with PACs Left anterior fascicular block Incomplete right bundle branch block Possible prior anterior wall myocardial infarction Nonspecific repolarization abnormalities No significant change since prior tracing of 05/17/2020 Electronically Signed on 05-20-2020 18:05:16 EST by Jamar Stephen
[2020-05-20 22:00] VITALS: BP 149/88
[2020-05-20] MEDS: APIXABAN 5 MG TAB (ELIQUIS) PO SCH (22:07)
[2020-05-20] MEDS: LORATADINE 10 MG TAB PO SCH (22:08)
[2020-05-20] MEDS: LOSARTAN 25 MG TAB PO SCH (22:08)
[2020-05-20] MEDS: QUEtiapine FUMARATE 50 MG TAB PO SCH (22:09)
[2020-05-21 06:00] VITALS: BP 159/89
[2020-05-21 06:23] LABS: HEMATOCRIT 44.9 % (42.0-52.0); HEMOGLOBIN 14.7 g/dl (13.5-17.5); MEAN CORPUSCULAR HEMOGLOBIN 30.4 pg (27.0-33.0); MEAN CORPUSCULAR HGB CONC 32.7 g/dl (32.0-36.5); PLATELET COUNT, AUTOMATED 162 10^3/uL (150-450); RED BLOOD COUNT 4.83 10^6/uL (4.30-6.10); WHITE BLOOD COUNT 5.8 10^3/uL (4.0-10.0)
[2020-05-21 06:43] LABS: BLOOD UREA NITROGEN 15 MG/DL (7-18); CALCIUM LEVEL 8.7 MG/DL (8.8-10.2); CARBON DIOXIDE LEVEL 32 MEQ/L (21-32); CHLORIDE LEVEL 105 MEQ/L (98-107); CREATININE FOR GFR 0.84 MG/DL (0.70-1.30); GLOMERULAR FILTRATION RATE > 60.0 (>35); GLUCOSE, FASTING 84 MG/DL (70-100); POTASSIUM SERUM 3.9 MEQ/L (3.5-5.1); SODIUM LEVEL 139 MEQ/L (136-145)
[2020-05-21] MEDS ORDERED: NYST10006 TOP (08:57)
[2020-05-21] MEDS: APIXABAN 5 MG TAB (ELIQUIS) PO SCH (09:00)
[2020-05-21] MEDS: FORMOTEROL FUMARATE 20 MCG/2 ML INHALATION SOLUTION (PERFOROMIST) INH SCH (09:17)
[2020-05-21] MEDS: TIOTROPIUM INHALER/CAPSULE (SPIRIVA) INH SCH (09:17)
[2020-05-21] MEDS ORDERED: METO1TAB87 PO (10:06)
[2020-05-21] MEDS: CEFDINIR 300 MG CAP (OMNICEF) PO SCH (10:50)
[2020-05-21] MEDS: FINASTERIDE 5 MG TAB PO SCH (10:50)
[2020-05-21] MEDS: LACTOBACILLUS ACIDOPHILUS CAP (BACID) PO SCH (10:50)
[2020-05-21] MEDS: DOCUSATE SODIUM 100 MG CAP PO SCH (10:50)
[2020-05-21] MEDS: MEMANTINE 5MG TABLET (NAMENDA) PO SCH (10:50)
[2020-05-21] MEDS: PANTOPRAZOLE 40MG TAB (PROTONIX) PO SCH (10:51)
[2020-05-21] MEDS: DOXAZOSIN MESYLATE 4 MG TAB PO SCH (10:52)
[2020-05-21 10:53] VITALS: BP 144/86
[2020-05-21] MEDS: FLUTICASONE PROP 0.05% NASAL SPRAY 16 GM (FLONASE) NARES SCH (10:53)
[2020-05-21] MEDS: METOPROLOL TART 25 MG TABLET PO SCH (10:53)
[2020-05-21] MEDS: POLYVINYL ALCOHOL OPHTH SOLN 15 ML(LIQUITEARS) OU SCH (10:53)
[2020-05-21] MEDS: CLOTRIMAZOLE 1% TOPICAL CREAM 30GM TOP SCH (10:54)
[2020-05-21] MEDS: NYSTATIN 100,000 UNITS/GM TOPICAL PWD 15 GM TOP SCH (10:54)
--- NOTE | 2020-05-21 23:04 | DS.PDOC ---
Discharge Summary General Date of Admission May 14, 2020 at 16:16 Date of Discharge May 21, 2020 Attending Physician: BREONNA STEIN DO Specialist/Consultants [facility], Dr. Welch Discharge Summary PROCEDURES PERFORMED DURING STAY: None ADMITTING DIAGNOSES: 1. Syncope 2. HSV infection of penis 3. Tinea cruris 4. BPH 5. COPD 6. Hypertension 7. Alzheimer's dementia 8. GERD 9. Delirium/hospital psychosis/"sundowning" DISCHARGE DIAGNOSES: 1. Syncope 2. r/o HSV infection of penis 3. Tinea cruris 4. BPH 5. COPD 6. Hypertension 7. Alzheimer's dementia 8. GERD 9. Delirium/hospital psychosis/"sundowning" 10. NSVT COMPLICATIONS/CHIEF COMPLAINT: Cellulitis Of Groin,Syncope,Urethral Irritation. HISTORY OF PRESENT ILLNESS: Mr. Bennett is an 89 year old male with Alzheimer's dementia and COPD here for syncope and found to have groin and penis inflammation. Patient is a poor historian and most of the history was obtained from ED provider and patient's saleem care proxy. While at [facility], he was eating breakfast and he had passed out briefly. When EMS arrived, he was found to have an SBP of 70. He was given fluid which his blood pressure quickly responded. He was then taken to the ED. While in the ED, physical exam demonstrated an enlarged, edematous penis with bullae. ED discussed case with urology who recommended antibiotic and antiviral. He was given Zosyn and Valacyclovir. While in the ED, he did not appear to be in distress. He did not answer my question appropriately and mumbled. He did admit to dysuria and pain in the groin area. I spoke with the health care proxy, Leonard ([phone]). Patient at times can be confused, but once he warms up, he can continue a conversation. Health care proxy also confirms full code status. HOSPITAL COURSE: Urology had made a recommendation to wrap the penis to prevent spread of suspected HSV infection and to elevated the penis to reduce the swelling. In addition to treating it with antivirals, we treated with antifungal and antibiotics. Without patient trying to scratch his groin, his groin healed. Antivirals were discontinued when HSV returned negative. Otherwise, during the night time, he would be awake and during the day time he would sleep. Tried to correct sleep pattern with before bed time Seroquel, but patient continued to be awake at night. On the day of anticipated discharge, patient complained of chest pain which started the night prior. Obtained EKG, troponin, and CXR. EKG suspected to be atrial fibrillation, but was NSVT. Troponin was negative, and CXR demonstrated a large hiatal hernia. Patient's chest pain may be secondary to hiatal hernia. Otherwise, patient was started on metoprolol for NSVT. DISCHARGE MEDICATIONS: Please see below. ALLERGIES: Please see below. PHYSICAL EXAMINATION ON DISCHARGE: VITAL SIGNS: Please see below. GENERAL: Comfortable, in no distress HEENT: Head normocephalic, atraumatic NECK: Supple CARDIOVASCULAR EXAMINATION: Regular rate and rhythm RESPIRATORY EXAMINATION: Lungs clear to auscultation bilaterally ABDOMINAL EXAMINATION: Soft, nontender, normal bowel sounds EXTREMITIES: No pitting edema SKIN: Groin rash resolved NEUROLOGICAL EXAMINATION: CN 3-12 grossly intact PSYCHIATRIC EXAMINATION: At times confused, poor historian LABORATORY DATA: Please see below. IMAGING: CT head Moderately severe diffuse cerebral atrophy with ventriculomegaly in proportion. Chronic small vessel white matter ischemic changes. There is no intra- or extra-axial hemorrhage, acute infarct, mass or mass effect. Skull base and calvarium without fracture or focal lesion. Bilateral maxillary sinus mucosal disease left greater than right with minimal ethmoid sinus mucosal thickening. CXR Large hiatal hernia, borderline heart size. Dextroconvex thoracic curvature. Otherwise no acute disease.. PROGNOSIS: Good ACTIVITY: Walk with walker DIET: Mechanical soft DISCHARGE PLAN: [facility] DISPOSITION: [facility]. DISCHARGE INSTRUCTIONS: 1. Follow up with your PCP within 5 days DISCHARGE CONDITION: Stable Total time spent on discharge planning, discharge summary, and medication reconciliation: 35 minutes Vital Signs/I&Os Vital Signs Date Time Temp Pulse Resp B/P (MAP) Pulse Ox O2 Delivery O2 Flow Rate FiO2 05/21/20 10:53 69 144/86 05/21/20 06:00 98.0 20 96 05/20/20 14:00 Room Air I&O- Last 24 Hours up to 6 AM 05/21/20 06:00 Intake Total 1260 ml Balance 1260 ml Laboratory Data Labs 24H Laboratory Tests 2 05/21/20 06:04: Nucleated Red Blood Cells % (auto) 0.0, Anion Gap 2L, Glomerular Filtration Rate > 60.0, Calcium Level 8.7L CBC/BMP Laboratory Tests 05/21/20 06:04 Microbiology Microbiology 05/14/20 Blood Culture - Final, Complete NO GROWTH AFTER 5 DAYS 05/14/20 Herpes Simplex Virus I (PCR) - Final, Complete 05/14/20 Herpes Simplex Virus II (PCR) - Final, Complete 05/14/20 Blood Culture - Final, Complete NO GROWTH AFTER 5 DAYS Discharge Medications Scheduled Acetaminophen (Acetaminophen) 325 Mg Tablet, 650 MG PO TID, (Reported) Carboxymethylcellulose Sodium (Refresh Tears) 15 Ml Drops, 1 DROP OU BID, (Reported) Docusate Sodium (Colace) 100 Mg Capsule, 100 MG PO DAILY, (Reported) Doxazosin Mesylate (Doxazosin) 4 Mg Tablet, 4 MG PO DAILY, (Reported) Finasteride (Finasteride) 5 Mg Tablet, 5 MG PO DAILY, (Reported) Fluticasone Propionate (Flonase Allergy Relief) 9.9 Ml [place].susp, 1 SPRAY NARES BID, (Reported) Furosemide (Furosemide) 20 Mg Tablet, 10 MG PO DAILY, (Reported) Lactobacillus Acidophilus (Acidophilus) 1 Each Tablet, 2 TAB PO BID, (Reported) Loratadine (Loratadine) 10 Mg Tablet, 10 MG PO QHS, (Reported) Losartan Potassium (Losartan Potassium) 25 Mg Tablet, 25 MG PO QHS, (Reported) Meloxicam (Mobic) 7.5 Mg Tablet, 7.5 MG PO DAILY, (Reported) Memantine HCl (Memantine HCl) 10 Mg Tablet, 10 MG PO BID, (Reported) Metoprolol Tartrate (Metoprolol Tartrate) 25 Mg Tablet, 12.5 MG PO BID Mirabegron (Myrbetriq) 50 Mg Tab.er.24h, 50 MG PO DAILY, (Reported) Nystatin (Nystop) 60 Gm Powder, 1 DOSE TOP BID Pantoprazole Sodium (Pantoprazole Sodium) 40 Mg Tablet.dr, 40 MG PO DAILY, (Reported) Potassium Chloride (Klor-Con M10) 10 Meq Tab.er.prt, 10 MEQ PO DAILY, (Reported) Umeclidinium Brm/Vilanterol Tr (Anoro Ellipta 62.5-25 Mcg INH) 1 Each Blst.w.de v, 1 PUFF INH DAILY, (Reported) Scheduled PRN Acetaminophen (Acetaminophen) 325 Mg Tablet, 325 MG PO Q4H PRN for PAIN / FEVER, (Reported) Albuterol Sulfate (Ventolin Hfa) 18 Gm Hfa.aer.ad, 2 PUFFS INH Q4H PRN for SHORTNESS OF BREATH, (Reported) Calcium Carbonate (Tums) 200 Mg Tab.chew, 500 MG PO Q6H PRN for HEARTBURN, (Reported) Docusate Sodium (Colace) 100 Mg Capsule, 100 MG PO BID PRN for CONSTIPATION, (Reported) Loperamide HCl (Imodium A-D) 2 Mg Tablet, 2 MG PO QID PRN for DIARRHEA, (Reported) Magnesium Hydroxide (Milk of Magnesia) 400 Mg/5 Ml Oral.susp, 30 ML PO DAILY PRN for CONSTIPATION, (Reported) Nitroglycerin (Nitrostat) 0.4 Mg Tab.subl, 0.4 MG SL NITRO PRN for CHEST PAIN, (Reported) Ointment Base No.104 (Hydrophilic Ointment Base) 500 Gm Oint...g., 1 DOSE TOP BID PRN for RASH, (Reported) APPLY TO CHEST AND ABDOMEN Polyethylene Glycol 3350 (Miralax) 119 Gm Powder, 17 GM PO DAILY PRN for CONSTIPATION, (Reported) Allergies Coded Allergies: No Known Allergies (Unverified , 05/14/20) BREONNA STEIN DO May 21, 2020 23:04
== END 2020-05-21 12:01 | DRG 607 ==
LOC: M ED 11:21 → EDBD 11:21 → M ED INP 16:16 → ENRESERV 16:44 → M MSPAV 17:25
PROVIDERS: ADMIT Internal Medicine; ATTEND Internal Medicine
DX: B35.6 Tinea cruris (principal); F02.81 Dementia in other diseases classified elsewhere, unspecified severity, with behavioral disturbance; R55 Syncope and collapse; I95.9 Hypotension, unspecified; I10 Essential (primary) hypertension; G30.9 Alzheimer's disease, unspecified; J44.9 Chronic obstructive pulmonary disease, unspecified; N40.0 Benign prostatic hyperplasia without lower urinary tract symptoms; Z79.899 Other long term (current) drug therapy; G47.33 Obstructive sleep apnea (adult) (pediatric); F41.9 Anxiety disorder, unspecified; F32.9 Major depressive disorder, single episode, unspecified; I48.91 Unspecified atrial fibrillation; M19.90 Unspecified osteoarthritis, unspecified site

== ENCOUNTER → 2020-05-22 | Outpatient (REF) ==
[~2020-05-22] MED LIST: ACET1TAB55 PO; ANOR1AER INH; APAP325T4 PO; COLA100C5 PO; DOXA1TAB67 PO; FINA5TAB2 PO; FLON1SPR NARES; FURO20TA2 PO; HM A5TAB4 PO; HYDROIN11 TOP; KLOR10TA76 PO; LOPE2TAB12 PO; LORA-243 PO; LOSA25TA14 PO; MEMA10TA19 PO; METO1TAB87 PO; MILKSUS3 PO; MIRA3350 PO; MOBI4TAB PO; MYRB50TA PO; NITR4TASL SL; NYST10006 TOP; PANT-23 PO; REFR0.5D8 OU; TUMS500C PO; VENTAER INH
== END ==
LOC: SKLAB2 12:52
DX: Z20.828 Contact with and (suspected) exposure to other viral communicable diseases (principal)

== ENCOUNTER → 2020-05-27 | Outpatient (REF) ==
[2020-05-27 09:14] LABS: HEMATOCRIT 45.7 % (42.0-52.0); HEMOGLOBIN 15.2 g/dl (13.5-17.5); MEAN CORPUSCULAR HEMOGLOBIN 30.9 pg (27.0-33.0); MEAN CORPUSCULAR HGB CONC 33.3 g/dl (32.0-36.5); MEAN CORPUSCULAR VOLUME 92.9 fl (80.0-96.0); PLATELET COUNT, AUTOMATED 201 10^3/uL (150-450); RED BLOOD COUNT 4.92 10^6/uL (4.30-6.10); WHITE BLOOD COUNT 5.6 10^3/uL (4.0-10.0)
[2020-05-27 10:35] LABS: BLOOD UREA NITROGEN 14 MG/DL (7-18); CALCIUM LEVEL 8.9 MG/DL (8.8-10.2); CARBON DIOXIDE LEVEL 29 MEQ/L (21-32); CHLORIDE LEVEL 107 MEQ/L (98-107); CREATININE FOR GFR 0.86 MG/DL (0.70-1.30); GLOMERULAR FILTRATION RATE > 60.0 (>35); GLUCOSE, FASTING 122 MG/DL (70-100); POTASSIUM SERUM 3.7 MEQ/L (3.5-5.1); SODIUM LEVEL 141 MEQ/L (136-145)
== END ==
LOC: SKLAB2 07:00
DX: I10 Essential (primary) hypertension (principal)